=== PATIENT | male | born 1965 | race Caucasian/White ===

== ENCOUNTER → 2017-03-28 | Outpatient (CLI) | payer OTHER ==
[~2017-03-28] MED LIST: IBUPROFEN600 MG PO; KEFLEX PO; KEFLEX500 M1 PO; LOTRIMIN30 GM TOP
--- NOTE | ~2017-03-28 | MR103 ---
[facility] A Service of [facility] RADIOLOGY TEXT RESULTS PATIENT: SHANEL LION LOCATION: [facility] : 69 UNIT #: [id number] AGE: [address]: Austen Acosta MD SEX: M ORDER DR: [id number] [address] [address] [id number] O MR#: [id number] Acc #: [id number] NAME: SHANEL LION : 1965 SEX: M STUDY DATE/TIME: 03/28/2017 17:26 UNIT: [facility] ROOM: STUDY DESCRIPTION: MR Knee Wo Contrast Lt Attending Physician: Austen Acosta M.D. Referring Physician: Austen Acosta M.D. Ordering Physician: Austen Acosta M.D. Primary Care Physician: Austen Acosta M.D. MRI CENTER REPORT This report is preliminary unless electronic signature is present. EXAM Left knee MRI without contrast 03/28/2017 HISTORY 51-year-old male with left knee pain for 4 months. No prior left knee surgery COMPARISON Left knee x-rays 03/20/2017. TECHNIQUE Routine unenhanced multiplanar, multisequence high-field MR imaging of the left knee was performed. FINDINGS There is a complete vertical radial tear of the posterior horn/body segment of the medial meniscus. There is a large meniscal flap which has flipped into the superior aspect of the medial gutter as well as a large meniscal flap flipped posterior to the PCL. 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 There is complete rupture of the ACL which is age-indeterminate, but appears subacute/chronic. No pivot shift contusion injury in the lateral compartment. However, there is approximately 15 mm of anterior tibial translation as the knee is positioned in the scanner. PCL intact. Collateral ligaments are intact. Extensor mechanism is intact. [id number]-tt-[id number] joint effusion. No significant popliteal cyst. 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 Small partial-thickness chondral fissure lateral patellar facet. Low-grade chondromalacia in the central medial femoral trochlea. Lateral compartment articular cartilage is intact. There is moderate-grade STS. [facility] A Service of [facility] RADIOLOGY TEXT RESULTS PATIENT: SHANEL LION LOCATION: [facility] : 69 UNIT #: [id number] AGE: [address]: Austen Acosta MD SEX: M ORDER DR: chondromalacia along the central and posterior weightbearing medial femoral condyle. Bone marrow signal is within expected limits. Visualized musculature is unremarkable. IMPRESSION 1. Complete vertical radial tear of the posterior horn/body segment medial meniscus. There are large meniscal flaps flipped into the superior aspect of the medial gutter and posterior to the PCL. 2. Discoid lateral meniscus without tear. 3. Indeterminate age complete rupture of the ACL. This appears subacute/chronic. No pivot shift contusion injury in the lateral compartment. However, there is at least 15 mm anterior tibial translation as the knee is positioned in the scanner. 4. 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 5. Low-grade chondromalacia in the patellofemoral joint, detailed above. Small partial-thickness chondral fissure lateral patellar facet. 6. Ygfju-ug-bvhvscan joint effusion. Dictated by... Ishmael Kim M.D. THIS IS AN ELECTRONICALLY VERIFIED REPORT Ishmael Kim M.D. at 04/01/2017 2:34 PM TO/fadi TD: 03/31/2017 10:54 JOB #: [id number] MRI CENTER REPORT Page 1 of 1
== END | disposition home or self-care (01) ==
LOC: SMRI 17:01
DX: M25.562 Pain in left knee (principal); S83.242A Other tear of medial meniscus, current injury, left knee, initial encounter; S83.512A Sprain of anterior cruciate ligament of left knee, initial encounter; M22.42 Chondromalacia patellae, left knee; M25.462 Effusion, left knee
CPT/HCPCS: 73721